=== PATIENT | male | born 1955 | race Two or more races ===

== ENCOUNTER 2025-03-27 11:32 | Emergency (ER) | payer OTHER, MEDICAID ==
[~2025-03-27] VITALS: Ht 177.8 cm; Wt 95.3 kg
[2025-03-27 11:40] VITALS: TEMP 98
[2025-03-27] MEDS ORDERED: ASPIRIN 325 MG TABLET ONE (11:56)
[2025-03-27] MEDS: ASPIRIN 325 MG TABLET PO ONE (12:14)
[2025-03-27] MEDS ORDERED: NITROGLYCERIN 0.4 MG/TAB BOTTLE ONE (12:20)
[2025-03-27 12:24] LABS: PLATELET COUNT (AUTO) 228 K/uL (150-450); RED BLOOD CELL COUNT(AUTO) 5.08 MIL/uL (4.5-6.0); RED CELL DISTRIBUTION WIDTH 13.6 % (11.5-15.0); WHITE BLOOD COUNT (AUTO) 7.1 K/uL (4.3-11.0)
[2025-03-27] MEDS: NITROGLYCERIN 0.4 MG/TAB BOTTLE SL ONE (12:35)
[2025-03-27 12:43] LABS: CALCIUM, SERUM 9.3 mg/dL (8.5-10.1); CREATININE 1.4 mg/dL (0.6-1.3); SODIUM SERUM 141 mmol/L (136-145); UREA NITROGEN, BLOOD 19 mg/dL (7-18)
[2025-03-27] MEDS ORDERED: MECLIZINE HCL 25 MG TABLET ONE (12:54)
[2025-03-27 12:58] LABS: NT-PRO BNP 83 pg/mL (0-125)
[2025-03-27] MEDS: MECLIZINE HCL 25 MG TABLET PO ONE (13:00)
[2025-03-27] MEDS ORDERED: IV NS 0.9% 250 ML IV ONE (13:13)
[2025-03-27] MEDS ORDERED: CT SWABBABLE VALVE TRANS SET 1 EA INFUS.SET MC ONE (13:13)
[2025-03-27] MEDS ORDERED: IOHEXOL-350 100 ML VIAL IV ONE (13:13)
[2025-03-27 14:44] VITALS: BP 130/82; O2SAT 99
== END 2025-03-27 14:37 | disposition home or self-care (01) ==
LOC: ER 11:54
DX: R07.89 Other chest pain (principal); R06.02 Shortness of breath; I11.9 Hypertensive heart disease without heart failure; Z88.8 Allergy status to other drugs, medicaments and biological substances
CPT/HCPCS: 99285; 71275; 71045; 93005 ×3; 85025; 80048; 85378; 36415; 84484; 83880; J8597; J7050; Q9967